=== PATIENT | male | born 1975 | race Caucasian/White ===

== ENCOUNTER 2017-10-14 20:38 | Emergency (ER) | payer SELFPAY ==
[2017-10-14] MEDS: THIAMINE 100 MG in IV NORMAL SALINE 50ML 50 ML IV (21:34)
[2017-10-14] MEDS: IV NORMAL SALINE 1000ML BAG 1,000 ML IV ×2 (21:34→21:35)
[2017-10-14 21:46] LABS: ANION GAP 16 (6-14); BLOOD UREA NITROGEN 7 mg/dL (8-26); CALCIUM 8.2 mg/dL (8.5-10.1); CARBON DIOXIDE 24 mmol/L (21-32); CHLORIDE 98 mmol/L (98-107); CREATININE 0.7 mg/dL (0.7-1.3); GFR 124.3; GLUCOSE 84 mg/dL (70-99); POTASSIUM 3.7 mmol/L (3.5-5.1); SODIUM 138 mmol/L (136-145)
[2017-10-14 21:52] LABS: BARBITURATES NEG (NEG); BENZODIAZEPINES NEG (NEG); CANNABINOIDS NEG (NEG); COCAINE NEG (NEG); METHADONE NEG (NEG); OPIATES NEG (NEG); PHENCYCLIDINE NEG (NEG)
[2017-10-14 21:53] LABS: AMPHETAMINE/METHAMPHETAMINE NEG (NEG); ETHANOL, URINE POS (NEG)
[2017-10-15] MEDS: DIPHTH,PERTUSS(ACELL),TET TOX 0.5 ML DISP.SYRIN. VAX IM (04:24)
[2017-10-15] MEDS ORDERED: SURGICEL HEMOSTAT 2X3 EACH. TP (04:30)
[2017-10-15] MEDS: SURGICEL HEMOSTAT 4X8 EACH. TP (04:36)
== END 2017-10-15 04:36 | disposition home or self-care (01) ==
LOC: ER 10-15 04:36
DX: S39.012A Strain of muscle, fascia and tendon of lower back, initial encounter (principal); S16.1XXA Strain of muscle, fascia and tendon at neck level, initial encounter; S09.90XA Unspecified injury of head, initial encounter; F10.129 Alcohol abuse with intoxication, unspecified; Z88.8 Allergy status to other drugs, medicaments and biological substances; Z88.5 Allergy status to narcotic agent; W18.39XA Other fall on same level, initial encounter; Y93.89 Activity, other specified; Y92.091 Bathroom in other non-institutional residence as the place of occurrence of the external cause; Y99.8 Other external cause status
CPT/HCPCS: 36415; 70450; 71045; 72100; 72125; 72170; 80048; 80307; 90471; 90715; 93005; 96365; 99285-25; J7030

== ENCOUNTER 2017-12-04 23:20 | Emergency (ER) | payer SELFPAY ==
[2017-12-04 23:54] LABS: LIPASE 430 U/L (73-393)
[2017-12-05] MEDS: LIDO:MAALOX 1:1 20 ML SINGLE DOSE. PO (00:02)
[2017-12-05] MEDS: IV NORMAL SALINE 1000ML BAG 1,000 ML IV ×2 (00:02→00:03)
[2017-12-05 00:27] LABS: BARBITURATES NEG (NEG); BENZODIAZEPINES NEG (NEG); CANNABINOIDS NEG (NEG); COCAINE NEG (NEG); METHADONE NEG (NEG); OPIATES NEG (NEG); PHENCYCLIDINE NEG (NEG)
[2017-12-05 00:28] LABS: AMPHETAMINE/METHAMPHETAMINE NEG (NEG); ETHANOL, URINE POS (NEG)
[2017-12-05] MEDS: THIAMINE 100 MG in IV NORMAL SALINE 50ML 50 ML IV (00:30)
[2017-12-05 00:48] LABS: ANION GAP 13 (6-14); BLOOD UREA NITROGEN 4 mg/dL (8-26); CALCIUM 8.1 mg/dL (8.5-10.1); CARBON DIOXIDE 25 mmol/L (21-32); CHLORIDE 97 mmol/L (98-107); CREATININE 0.7 mg/dL (0.7-1.3); GFR 123.7; GLUCOSE 92 mg/dL (70-99); POTASSIUM 3.6 mmol/L (3.5-5.1); SODIUM 135 mmol/L (136-145)
== END 2017-12-05 01:55 | disposition home or self-care (01) ==
LOC: ER 12-05 01:55
DX: F10.129 Alcohol abuse with intoxication, unspecified (principal); Z88.5 Allergy status to narcotic agent; Z88.8 Allergy status to other drugs, medicaments and biological substances
CPT/HCPCS: 36415; 80048; 80307; 83690; 93005; 96365; 99285-25; J7030

== ENCOUNTER 2018-01-01 15:54 | Emergency (ER) | payer SELFPAY ==
[2018-01-01 16:21] LABS: ADD MAN DIFF? NO
[2018-01-01 16:37] LABS: BILIRUBIN,URINE NEGATIVE (NEG); CLARITY,URINE CLEAR; COLOR,URINE YELLOW; GLUCOSE,URINE NEGATIVE (NEG); NITRITE,URINE NEGATIVE (NEG); PH,URINE 5.5; PROTEIN,URINE NEGATIVE (NEG-TRACE); UROBILINOGEN,URINE 0.2 mg/dL (0.2 mg/dL)
[2018-01-01 16:42] LABS: ANION GAP 13 (6-14); BLOOD UREA NITROGEN 3 mg/dL (8-26); CALCIUM 8.1 mg/dL (8.5-10.1); CARBON DIOXIDE 23 mmol/L (21-32); CHLORIDE 100 mmol/L (98-107); CREATININE 0.6 mg/dL (0.7-1.3); GFR 147.8; GLUCOSE 91 mg/dL (70-99); POTASSIUM 3.7 mmol/L (3.5-5.1); SODIUM 136 mmol/L (136-145)
[2018-01-01 16:45] LABS: BACTERIA,URINE 0 /HPF (0-FEW); RBC,URINE 0 /HPF (0-2); WBC,URINE 0 /HPF (0-4)
[2018-01-01 16:46] LABS: BASO # 0.1 x10^3/uL (0.0-0.2); BASO % 3 % (0-3); EOS # 0.1 x10^3/uL (0.0-0.7); EOS % 1 % (0-3); HEMATOCRIT 39.8 % (39.0-53.0); HEMOGLOBIN 13.8 g/dL (13.0-17.5); LYMPH % 46 % (24-48); MEAN CORPUSCULAR HEMOGLOBIN 34 pg (25-35); MEAN CORPUSCULAR HGB CONC 35 g/dL (31-37); MEAN CORPUSCULAR VOLUME 97 fL (79-100); MONO # 0.5 x10^3/uL (0.0-1.1); MONO % 12 % (0-9); NEUT # 1.7 x10^3uL (1.8-7.7); NEUT % 38 % (31-73); PLATELET COUNT 177 x10^3/uL (140-400); RED BLOOD COUNT 4.12 x10^6/uL (4.30-5.70); RED CELL DISTRIBUTION WIDTH 13.7 % (11.5-14.5); WHITE BLOOD COUNT 4.3 x10^3/uL (4.0-11.0)
[2018-01-01 16:48] LABS: ALBUMIN 4.1 g/dL (3.4-5.0); ALK PHOS 52 U/L (46-116); ALT (SGPT) 138 U/L (16-63); AST (SGOT) 230 U/L (15-37); DIRECT BILIRUBIN 0.2 mg/dL (0.0-0.2); MAGNESIUM 2.1 mg/dL (1.8-2.4); TOTAL BILIRUBIN 0.5 mg/dL (0.2-1.0); TOTAL PROTEIN 7.4 g/dL (6.4-8.2)
[2018-01-01] MEDS: MULTIVIT INFUSN,ADULT 4,VIT K 10 ML, THIAMINE 100 MG, FOLIC ACID 1 MG in IV NORMAL SALI... IV (16:50)
[2018-01-01 16:54] LABS: ETHANOL 425 mg/dL (0-10)
[2018-01-01 16:55] LABS: TROPONINI < 0.017 ng/mL (0.000-0.055)
[2018-01-01 17:00] LABS: AMPHETAMINE/METHAMPHETAMINE NEG (NEG); BARBITURATES NEG (NEG); BENZODIAZEPINES NEG (NEG); CANNABINOIDS NEG (NEG); COCAINE NEG (NEG); ETHANOL, URINE POS (NEG); METHADONE NEG (NEG); OPIATES NEG (NEG); PHENCYCLIDINE NEG (NEG)
[2018-01-01] MEDS: ONDANSETRON PF 4 MG/2 ML VIAL. IV (17:30)
== END 2018-01-01 17:50 | disposition home or self-care (01) ==
LOC: ER 15:54
DX: F10.129 Alcohol abuse with intoxication, unspecified (principal)
CPT/HCPCS: 36415; 70450; 71045; 80048; 80076; 80307; 81001; 83735; 84484; 85025; 93005; 96365; 99285; G0480; J7030

== ENCOUNTER 2018-01-01 22:30 | Emergency (ER) | payer SELFPAY | END 2018-01-01 23:10 | disposition home or self-care (01) | LOC: ER 22:30 | DX: F10.120 Alcohol abuse with intoxication, uncomplicated (principal) | CPT/HCPCS: 99283 ==

== ENCOUNTER 2018-04-16 23:14 | Emergency (ER) | payer SELFPAY ==
[~2018-04-16] VITALS: Ht 175.3 cm; Wt 68.0 kg
[2018-04-16 23:14] VITALS: BP 147/85
[~2018-04-16 23:14] MED LIST: BUSP10TA PO; GABA-586 PO; HALO2TAB PO; HYDR50CA2 PO; NALT50TA PO; TRAZ-86 PO
[2018-04-17] MEDS ORDERED: VENTOLIN HFA18 GM INH (00:06)
[2018-04-17] MEDS ORDERED: AMOX1TAB61 PO (00:06)
[2018-04-17] MEDS ORDERED: BENZ100C PO (00:06)
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
[2018-04-17] MEDS ORDERED: DIPHTH,PERTUSS(ACELL),TET TOX 0.5 ML DISP.SYRIN. VAX IM ONE (00:15)
== END 2018-04-17 00:12 | disposition home or self-care (01) ==
LOC: ER 23:14
DX: S81.851A Open bite, right lower leg, initial encounter (principal); F10.129 Alcohol abuse with intoxication, unspecified; R05 Cough; F17.200 Nicotine dependence, unspecified, uncomplicated; Y90.9 Presence of alcohol in blood, level not specified; Z88.5 Allergy status to narcotic agent; Z88.8 Allergy status to other drugs, medicaments and biological substances; W54.0XXA Bitten by dog, initial encounter; Y93.89 Activity, other specified; Y92.89 Other specified places as the place of occurrence of the external cause; Y99.8 Other external cause status
CPT/HCPCS: 90471; 90715; 99283

== ENCOUNTER 2018-05-24 19:27 | Emergency (ER) | payer SELFPAY ==
[~2018-05-24] VITALS: Ht 175.3 cm; Wt 65.8 kg
[~2018-05-24 19:27] MED LIST changes: +AMOX1TAB61 PO; +BENZ100C PO; +VENTOLIN HFA18 GM INH
[2018-05-24] MEDS: IV NORMAL SALINE 1000ML BAG 1,000 ML IV ONE ×2 (19:52→21:45)
[2018-05-24 20:44] LABS: BASO # 0.1 x10^3/uL (0.0-0.2); BASO % 3 % (0-3); EOS # 0.1 x10^3/uL (0.0-0.7); EOS % 1 % (0-3); HEMOGLOBIN 13.8 g/dL (13.0-17.5); LYMPH % 51 % (24-48); MEAN CORPUSCULAR HEMOGLOBIN 34 pg (25-35); MEAN CORPUSCULAR HGB CONC 35 g/dL (31-37); MEAN CORPUSCULAR VOLUME 100 fL (79-100); MONO # 0.3 x10^3/uL (0.0-1.1); MONO % 9 % (0-9); NEUT # 1.4 x10^3uL (1.8-7.7); NEUT % 36 % (31-73); PLATELET COUNT 218 x10^3/uL (140-400); RED BLOOD COUNT 4.02 x10^6/uL (4.30-5.70); RED CELL DISTRIBUTION WIDTH 13.3 % (11.5-14.5); WHITE BLOOD COUNT 3.8 x10^3/uL (4.0-11.0)
[2018-05-24 20:49] LABS: CALCIUM 7.8 mg/dL (8.5-10.1); CREATININE 0.6 mg/dL (0.7-1.3); GFR 147.8; POTASSIUM 3.8 mmol/L (3.5-5.1)
[2018-05-24 20:55] LABS: ALBUMIN 3.8 g/dL (3.4-5.0); ALBUMIN/GLOBULIN RATIO 1.2 (1.0-1.7); TOTAL BILIRUBIN 0.3 mg/dL (0.2-1.0); TOTAL PROTEIN 7.1 g/dL (6.4-8.2)
[2018-05-24 21:24] LABS: BILIRUBIN,URINE NEGATIVE (NEG); CLARITY,URINE CLEAR; COLOR,URINE YELLOW; NITRITE,URINE NEGATIVE (NEG); PH,URINE 5.5; PROTEIN,URINE NEGATIVE (NEG-TRACE); UROBILINOGEN,URINE 0.2 mg/dL (0.2 mg/dL)
[2018-05-24 21:32] LABS: BACTERIA,URINE 0 /HPF (0-FEW); RBC,URINE 0 /HPF (0-2); SQUAMOUS EPITHELIAL CELL,UR OCC /LPF; WBC,URINE 0 /HPF (0-4)
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
[2018-05-24 21:36] LABS: BARBITURATES NEG (NEG); BENZODIAZEPINES NEG (NEG); CANNABINOIDS NEG (NEG); COCAINE NEG (NEG); METHADONE NEG (NEG); OPIATES NEG (NEG); PHENCYCLIDINE NEG (NEG)
[2018-05-24 21:38] LABS: AMPHETAMINE/METHAMPHETAMINE NEG (NEG)
[2018-05-25 02:30] VITALS: BP 103/54
--- NOTE | 2018-05-25 09:29 | EKG ---
[facility] [address] [place] [address] Test Date: 2018-05-24 Test Time: 19:37:20 Pat Name: AJAY MUÑOZ Department: Room: Gender: M Employment Director: : 1975 Requested By: SHAUN TEJADA Order Number: [id number] Reading MD: Brandan Dumont MD Measurements Intervals Arbon Rate: 109 P: RI: QRS: 56 QRSD: 84 T: 71 QT: 368 QTc: 497 Interpretive Statements SR NON-SPECIFIC ST/T CHANGES Electronically Signed On 05-26-2018 9:06:02 CDT by Brandan Dumont MD
== END 2018-05-25 03:22 | disposition home or self-care (01) ==
LOC: ER 19:27
DX: F10.229 Alcohol dependence with intoxication, unspecified (principal); F32.9 Major depressive disorder, single episode, unspecified; F43.20 Adjustment disorder, unspecified; Y90.8 Blood alcohol level of 240 mg/100 ml or more; Z88.5 Allergy status to narcotic agent; Z88.8 Allergy status to other drugs, medicaments and biological substances; Y90.2 Blood alcohol level of 40-59 mg/100 ml
CPT/HCPCS: 36415; 80053; 80307; 81001; 82150; 83690; 83735; 85025; 93005; 96360; 96361; 99285; G0480; J7030; G0479

== ENCOUNTER 2018-06-21 20:25 | Emergency (ER) | payer SELFPAY ==
[~2018-06-21] VITALS: Ht 172.7 cm; Wt 65.8 kg
[2018-06-21 20:25] VITALS: BP 110/74
--- NOTE | 2018-06-21 20:58 | RAD ---
Left elbow 3 views. HISTORY: Fell last night 3 views were taken of the left elbow. There is no fracture. The fat pads the elbow are not displaced. IMPRESSION: 1. Negative left elbow. Electronically signed by: Uriel Benton MD (06/21/2018 8:55 PM) [facility]
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
[2018-06-21] MEDS ORDERED: ACETAMINOPHEN 500 MG TABLET PO ONE (21:30)
== END 2018-06-21 22:58 | disposition home or self-care (01) ==
LOC: ER 20:25
DX: M25.522 Pain in left elbow (principal); F32.9 Major depressive disorder, single episode, unspecified; F10.229 Alcohol dependence with intoxication, unspecified; Y90.9 Presence of alcohol in blood, level not specified; Z88.5 Allergy status to narcotic agent; Z88.8 Allergy status to other drugs, medicaments and biological substances
CPT/HCPCS: 73080; 99284

== ENCOUNTER 2019-05-19 21:27 | Emergency (ER) | payer SELFPAY ==
[~2019-05-19] VITALS: Ht 175.3 cm; Wt 70.3 kg
[~2019-05-19 21:27] MED LIST changes: -GABA-586 PO; +GABA300C18 PO
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
[2019-05-19 22:00] VITALS: BP 107/57
== END 2019-05-19 22:04 | disposition home or self-care (01) ==
LOC: ER 21:27
DX: S00.03XA Contusion of scalp, initial encounter (principal); F10.229 Alcohol dependence with intoxication, unspecified; F32.9 Major depressive disorder, single episode, unspecified; Y90.9 Presence of alcohol in blood, level not specified; Y04.8XXA Assault by other bodily force, initial encounter; Y93.89 Activity, other specified; Y92.89 Other specified places as the place of occurrence of the external cause; Y99.8 Other external cause status
CPT/HCPCS: 99283

== ENCOUNTER 2019-07-27 01:46 | Emergency (ER) | payer SELFPAY ==
[~2019-07-27] VITALS: Ht 175.3 cm; Wt 67.1 kg
[~2019-07-27 01:46] MED LIST changes: +CHLO25CA9 PO; +ESCITALOPRAM OX20 MG PO; +Folic Acid PO; +GABA600T7 PO; +HYDR25TA PO; +MULT1TAB90 PO; +Nicotine 21MG TD; +PANT40TA77 PO; +PRAZ1CAP2 PO; +THIA100T22 PO
[2019-07-27] MEDS ORDERED: MULTIVIT INFUSN,ADULT 4,VIT K 10 ML, THIAMINE INJ 100 MG, FOLIC ACID INJ 1 MG in IV NOR... IV ONE (02:15)
[2019-07-27 02:33] LABS: ACETAMIN < 2 mcg/ml (10-30); SALIC 2.9 mg/dL (2.8-20.0)
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
[2019-07-27 02:59] LABS: BARBITURATES NEG (NEG); BENZODIAZEPINES NEG (NEG); CANNABINOIDS NEG (NEG); COCAINE NEG (NEG); METHADONE NEG (NEG); OPIATES NEG (NEG); PHENCYCLIDINE NEG (NEG)
[2019-07-27 03:01] LABS: AMPHETAMINE/METHAMPHETAMINE NEG (NEG)
[2019-07-27 03:16] VITALS: BP 118/78
[2019-07-27 03:23] LABS: BASO # 0.1 x10^3/uL (0.0-0.2); BASO % 2 % (0-3); EOS # 0.1 x10^3/uL (0.0-0.7); EOS % 1 % (0-3); HEMATOCRIT 41.6 % (39.0-53.0); HEMOGLOBIN 14.4 g/dL (13.0-17.5); LYMPH % 46 % (24-48); MEAN CORPUSCULAR HEMOGLOBIN 34 pg (25-35); MEAN CORPUSCULAR HGB CONC 35 g/dL (31-37); MEAN CORPUSCULAR VOLUME 98 fL (79-100); MONO # 0.6 x10^3/uL (0.0-1.1); MONO % 13 % (0-9); NEUT # 1.6 x10^3/uL (1.8-7.7); NEUT % 37 % (31-73); PLATELET COUNT 241 x10^3/uL (140-400); RED BLOOD COUNT 4.23 x10^6/uL (4.30-5.70); RED CELL DISTRIBUTION WIDTH 13.6 % (11.5-14.5); WHITE BLOOD COUNT 4.3 x10^3/uL (4.0-11.0)
[2019-07-27 03:30] LABS: CALCIUM 8.5 mg/dL (8.5-10.1); CREATININE 0.6 mg/dL (0.7-1.3); POTASSIUM 3.7 mmol/L (3.5-5.1)
[2019-07-27 03:36] LABS: ALBUMIN 4.3 g/dL (3.4-5.0); ALBUMIN/GLOBULIN RATIO 1.1 (1.0-1.7); TOTAL BILIRUBIN 0.5 mg/dL (0.2-1.0); TOTAL PROTEIN 8.1 g/dL (6.4-8.2)
--- NOTE | 2019-07-27 07:28 | EKG ---
[facility] [address] [place] [address] Test Date: 2019-07-27 Test Time: 02:12:10 Pat Name: AJAY MUÑOZ Department: Room: Gender: M Retail Customer Service Representative: : 1975 Requested By: CINTHIA DAS Order Number: [id number] Reading MD: Measurements Intervals [place] Rate: 75 P: 65 OK: 150 QRS: 49 QRSD: 82 T: 65 QT: 386 QTc: 434 Interpretive Statements SINUS RHYTHM INCOMPLETE RIGHT BUNDLE BRANCH BLOCK OTHERWISE NORMAL ECG RI6.01 No previous ECG available for comparison
[2019-07-29] MEDS ORDERED: CITA10TA8 PO (07:58)
[2019-07-29] MEDS ORDERED: ESCITALOPRAM OX20 MG PO (07:58)
== END 2019-07-27 03:35 | disposition home or self-care (01) ==
LOC: ER 01:46
DX: F10.229 Alcohol dependence with intoxication, unspecified (principal); R07.89 Other chest pain; F41.9 Anxiety disorder, unspecified; F17.210 Nicotine dependence, cigarettes, uncomplicated; F12.90 Cannabis use, unspecified, uncomplicated; Y90.8 Blood alcohol level of 240 mg/100 ml or more; Z88.5 Allergy status to narcotic agent; Z98.890 Other specified postprocedural states
CPT/HCPCS: 36415; 80053; 80307; 80329; 82553; 83690; 84484; 85025; 93005; 96365; 99285; G0480; J7030

== ENCOUNTER 2019-07-28 01:49 | Inpatient (IN) | payer SELFPAY ==
[~2019-07-28] VITALS: Ht 175.3 cm; Wt 64.6 kg
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
[2019-07-28] MEDS ORDERED: MULTIVIT INFUSN,ADULT 4,VIT K 10 ML, THIAMINE INJ 100 MG, FOLIC ACID INJ 1 MG in IV NOR... IV ONE (02:15)
[2019-07-28] MEDS ORDERED: ONDANSETRON PF 4 MG/2 ML VIAL. IV ONE (02:15)
[2019-07-28] MEDS ORDERED: FAMOTIDINE 20 MG/2 ML VIAL IVP ONE (02:15)
[2019-07-28 02:40] LABS: BASO # 0.2 x10^3/uL (0.0-0.2); BASO % 2 % (0-3); EOS % 1 % (0-3); HEMATOCRIT 43.2 % (39.0-53.0); HEMOGLOBIN 14.8 g/dL (13.0-17.5); LYMPH # 2.1 x10^3/uL (1.0-4.8); LYMPH % 21 % (24-48); MEAN CORPUSCULAR HEMOGLOBIN 34 pg (25-35); MEAN CORPUSCULAR HGB CONC 34 g/dL (31-37); MEAN CORPUSCULAR VOLUME 98 fL (79-100); MONO # 0.6 x10^3/uL (0.0-1.1); MONO % 6 % (0-9); NEUT # 7.1 x10^3/uL (1.8-7.7); NEUT % 71 % (31-73); PLATELET COUNT 245 x10^3/uL (140-400); RED BLOOD COUNT 4.39 x10^6/uL (4.30-5.70); RED CELL DISTRIBUTION WIDTH 13.6 % (11.5-14.5); WHITE BLOOD COUNT 9.9 x10^3/uL (4.0-11.0)
[2019-07-28 02:43] LABS: BILIRUBIN,URINE NEGATIVE (NEG); CLARITY,URINE CLEAR; COLOR,URINE YELLOW; NITRITE,URINE NEGATIVE (NEG); PROTEIN,URINE NEGATIVE (NEG-TRACE); UROBILINOGEN,URINE 0.2 mg/dL (0.2 mg/dL)
[2019-07-28 02:54] LABS: BARBITURATES NEG (NEG); BENZODIAZEPINES NEG (NEG); CANNABINOIDS NEG (NEG); COCAINE NEG (NEG); METHADONE NEG (NEG); OPIATES NEG (NEG); PHENCYCLIDINE NEG (NEG)
[2019-07-28 02:58] LABS: BACTERIA,URINE 0 /HPF (0-FEW); SQUAMOUS EPITHELIAL CELL,UR OCC /LPF
[2019-07-28] MEDS ORDERED: NICOTINE 21MG PATCH. TD ONE (03:00)
[2019-07-28 03:01] LABS: AMPHETAMINE/METHAMPHETAMINE NEG (NEG)
[2019-07-28 03:20] LABS: CALCIUM 8.2 mg/dL (8.5-10.1); CREATININE 0.6 mg/dL (0.7-1.3); POTASSIUM 3.6 mmol/L (3.5-5.1)
[2019-07-28 03:24] LABS: ALBUMIN 4.4 g/dL (3.4-5.0); DIRECT BILIRUBIN 0.1 mg/dL (0.0-0.2); MAGNESIUM 2.3 mg/dL (1.8-2.4); TOTAL BILIRUBIN 0.3 mg/dL (0.2-1.0); TOTAL PROTEIN 8.3 g/dL (6.4-8.2)
[2019-07-28] MEDS ORDERED: ONDANSETRON PF 4 MG/2 ML VIAL. IV PRN (03:30)
--- NOTE | 2019-07-28 04:23 | RAD ---
PORTABLE CHEST 1V INDICATION: Chest pain. COMPARISON STUDY: 07/16/2019. FINDINGS: Lungs: Normal lung volume. No pulmonary mass or consolidation. Right apical scarring. The tracheobronchial tree and hilar structures are normal. Pleura: No pleural effusion or pneumothorax. Heart and Mediastinum: The cardiomediastinal silhouette is normal. The great vessels of the thorax are normal. IMPRESSION: No acute cardiopulmonary process. Electronically signed by: David Nelson MD (07/28/2019 4:20 AM) [facility]
[2019-07-28] MEDS: IV NORMAL SALINE 1000ML BAG 1,000 ML IV SCH ×3 (04:31→20:44)
--- NOTE | 2019-07-28 05:00 | NUR ---
The patient, AJAY MUÑOZ, 43 y/o, M admitted by LILI HOUSE MD, was given written information regarding hospital policies, unit procedures and contact persons. Valuables were checked and pt refused to have security lock up any belongings. PAT team saw pt in ER. Cleared him of needing any 1:1 observation. Pt. is wanting to go to an alcohol rehab. Denies any current needs. Will continue to monitor.
[2019-07-28 07:00] VITALS: BP 125/79
--- NOTE | 2019-07-28 07:07 | EKG ---
[facility] [address] [place] [address] Test Date: 2019-07-28 Test Time: 02:05:37 Pat Name: AJAY MUÑOZ Department: Room: Gender: M Supply Person: : 1975 Requested By: LEVI DAVIS Order Number: [id number] Reading MD: Measurements Intervals [place] Rate: 83 P: 59 AR: 142 QRS: 59 QRSD: 84 T: 71 QT: 368 QTc: 433 Interpretive Statements SINUS RHYTHM QRS(T) CONTOUR ABNORMALITY CONSIDER ANTEROSEPTAL MYOCARDIAL DAMAGE POSSIBLY ABNORMAL ECG RI6.01 No previous ECG available for comparison
[2019-07-28] MEDS ORDERED: TEMAZEPAM 7.5 MG CAPSULE PO PRN (08:30)
[2019-07-28] MEDS ORDERED: fentaNYL PF VIAL 100 MCG/2 ML VIAL IVP PRN (08:30)
[2019-07-28] MEDS ORDERED: ONDANSETRON PF 4 MG/2 ML VIAL. IVP PRN (08:30)
[2019-07-28] MEDS ORDERED: ACETAMINOPHEN 500 MG TABLET PO PRN (08:30)
[2019-07-28] MEDS ORDERED: chlordiazePOXIDE HCL 25 MG CAPSULE PO PRN ×2 (08:30→12:30)
[2019-07-28] MEDS ORDERED: traMADol 50 MG TABLET PO PRN (08:30)
[2019-07-28] MEDS ORDERED: CALCIUM CARBONATE 500 MG TAB.CHEW PO PRN (08:30)
[2019-07-28] MEDS ORDERED: FLU VAX QS 2019-20 (36MOS+)/PF 0.5 ML SYRINGE. VAX IM ONE (09:00)
[2019-07-28] MEDS ORDERED: NICOTINE 21MG PATCH. TD PRN (09:00)
[2019-07-28] MEDS ORDERED: CITALOPRAM 10 MG TABLET. PO SCH (09:00)
[2019-07-28 11:00] VITALS: BP 135/77
--- NOTE | 2019-07-28 12:18 | PDOC1 ---
History and Physical Date of Admission Date of Admission DATE: 07/28/19 TIME: 12:13 Identification/Chief Complaint Chief Complaint depressed Source Source: Caregiver, Chart review, Patient History of Present Illness History of Present Illness HE is a 43 white male, so depressed, lost his sister 2 yrs or 2 mos ago, then he quit his job yesterday, HE started drinking and etoh 480,. HAs not ambulated yet, ate ok as per staff, PAT team consulted, someone will visit later 1:30 PM> AST ALT high in this alcoholic, NO abd pain, I dont think he takes any home meds Agreeable to try celexa. Past Medical History Cardiovascular: HTN GI: GERD, Other Psych: Anxiety, Addictions, Depression, Other Past Surgical History Past Surgical History: No pertinent history Family History Family History: Hypertension Social History Smoke: <1 pack per day ALCOHOL: heavy Drugs: None Current Problem List Problem List Problems Medical Problems: (1) Alcohol intoxication Status: Acute (2) Depression with suicidal ideation Status: Acute Current Medications Current Medications Current Medications Multivitamins 10 ml/Thiamine HCl 100 mg/Folic Acid 1 mg/Sodium Chloride 1,011.2 ml @ 1,000 mls/ hr 1X ONCE IV Last administered on 07/28/19at 02:41; Start 07/28/19 at 02:15; Stop 07/28/19 at 03:15; Status DC Ondansetron HCl (Zofran) 4 mg 1X ONCE IV Last administered on 07/28/19at 02:31; Start 07/28/19 at 02:15; Stop 07/28/19 at 02:16; Status DC Famotidine (Pepcid Vial) 20 mg 1X ONCE IVP Last administered on 07/28/19at 02:31; Start 07/28/19 at 02:15; Stop 07/28/19 at 02:16; Status DC Nicotine (Nicoderm Cq 21mg) 1 patch 1X ONCE TD Last administered on 07/28/19at 03:06; Start 07/28/19 at 03:00; Stop 07/28/19 at 03:01; Status DC Ondansetron HCl (Zofran) 4 mg PRN Q8HRS PRN IV NAUSEA/VOMITING; Start 07/28/19 at 03:30; Stop 07/29/19 at 03:29 Sodium Chloride 1,000 ml @ 125 mls/hr Q8H IV Last administered on 07/28/19at 04:31; Start 07/28/19 at 03:30; Stop 07/29/19 at 03:29 Lorazepam (Ativan Inj) 1 mg PRN Q4HRS PRN IVP ANXIETY / AGITATION Last administered on 07/28/19at 05:54; Start 07/28/19 at 03:30 Influenza Virus Vaccine Quadrival (Afluria Quad 2019-20 (3yr Up) Syringe) 0.5 ml ONCE ONCE VAX IM Last administered on 07/28/19at 09:32; Start 07/28/19 at 09:00; Stop 07/28/19 at 09:01; Status DC Ondansetron HCl (Zofran) 4 mg PRN Q6HRS PRN IVP NAUSEA/VOMITING; Start 07/28/19 at 08:30 Acetaminophen (Tylenol) 500 mg PRN Q6HRS PRN PO MILD PAIN / TEMP; Start 07/28/19 at 08:30 Tramadol HCl (Ultram) 50 mg PRN Q6HRS PRN PO PAIN MODERATE; Start 07/28/19 at 08:30 Calcium Carbonate/ Glycine (Tums) 500 mg PRN AFTMEALHC PRN PO INDIGESTION; Start 07/28/19 at 08:30 Fentanyl Citrate (Fentanyl 2ml Vial) 50 mcg PRN Q2HR PRN IVP PAIN MODERATE TO SEVERE; Start 07/28/19 at 08:30 Citalopram Hydrobromide (CeleXA) 10 mg DAILY PO Last administered on 07/28/19at 09:29; Start 07/28/19 at 09:00 Chlordiazepoxide (Librium) 25 mg PRN Q6HRS PRN PO ANXIETY / AGITATION; Start 07/28/19 at 08:30 Multivitamins (Thera M Plus) 1 tab DAILY PO ; Start 08/03/19 at 09:00 Thiamine Mononitrate (Vitamin B-1) 100 mg DAILY PO ; Start 08/03/19 at 09:00 Folic Acid (Folic Acid) 1 mg DAILY PO ; Start 08/03/19 at 09:00 Multivitamins 10 ml/Thiamine HCl 100 mg/Folic Acid 1 mg/Sodium Chloride 1,011.2 ml @ 100 mls/ hr DAILY IV ; Start 07/29/19 at 09:00; Stop 08/02/19 at 19:07 Temazepam (Restoril) 7.5 mg PRN QHS PRN PO INSOMNIA; Start 07/28/19 at 08:30 Active Scripts Active Thera-M Tablet (Multivits,Ca,Minerals/Iron/Fa) 1 Each Tablet 1 Tab PO DAILY Vitamin B-1 (Thiamine Mononitrate) 100 Mg Tablet 100 Mg PO DAILY [Folic Acid] 1 MG Tablet 1 Mg PO DAILY Pantoprazole Sodium (Pantoprazole Sodium) 40 Mg Tablet.dr 40 Mg PO DAILYAC Chlordiazepoxide Hcl 25 Mg Capsule 25 Mg PO PRN Q6HRS PRN [Nicotine 21MG] 1 PATCH Patch 1 Patch TD PRN DAILY PRN Ventolin Hfa Inhaler (Albuterol Sulfate) 18 Gm Hfa.aer.ad 2 Puff INH Q4HRS Reported Hydroxyzine Hcl 25 Mg Tablet 1-2 Tab PO PRN QID PRN Gabapentin 600 Mg Tablet 600 Mg PO TID Escitalopram Oxalate 20 Mg Tablet 1.5 Tab PO DAILY Prazosin Hcl 1 Mg Capsule 1 Cap PO QHS Allergies Allergies: Coded Allergies: fluoxetine (Unverified Allergy, Intermediate, 03/29/15) hydrocodone (Verified Adverse Reaction, Intermediate, 03/29/15) "WIG OUT PER PATIENT" ROS Review of System depressed demeanor, all else is neg Physical Exam General: Alert, Oriented X3, Cooperative, No acute distress HEENT: Atraumatic, PERRLA, EOMI Lungs: Clear to auscultation, Normal air movement Heart: S1S2, RRR, no thrills, no rubs, no gallops Cardiovascular: S1, S2 Abdomen: Normal bowel sounds, Soft, No tenderness, No hepatosplenomegaly, No masses Male Genitals Exam: normal genitalia, normal prostate Rectal Exam: not examined PELVIC: Nml ext genitalia Extremities: No clubbing, No cyanosis, No edema, Normal pulses, No tenderness/swelling Skin: No rashes, No breakdown, No significant lesion Neuro: Normal gait, Normal speech, Strength at 5/5 X4 ext, Normal tone, Sensation intact, Cranial nerves 3-12 NL, Reflexes 2+ Psych/Mental Status: Mental status NL, Mood NL Vitals Vitals Vital Signs Date Time Temp Pulse Resp B/P (MAP) Pulse Ox O2 Delivery O2 Flow Rate FiO2 07/28/19 08:00 Room Air 07/28/19 07:00 98.0 98 16 125/79 (94) 97 98.0 Labs Labs Laboratory Tests Test 07/28/19 02:10 07/28/19 02:25 07/28/19 10:05 Urine Collection Type Void Urine Color Yellow Urine Clarity Clear Urine pH 6.0 Urine Specific [place] <=1.005 Urine Protein Negative mg/dL (NEG-TRACE) Urine Glucose (UA) Negative mg/dL (NEG) Urine Ketones (Stick) Negative mg/dL (NEG) Urine Blood Negative (NEG) Urine Nitrite Negative (NEG) Urine Bilirubin Negative (NEG) Urine Urobilinogen Dipstick 0.2 mg/dL (0.2 mg/dL) Urine Leukocyte Esterase Negative (NEG) Urine RBC 1-2 /HPF (0-2) Urine WBC 1-4 /HPF (0-4) Urine Squamous Epithelial Cells Occ /LPF Urine Bacteria 0 /HPF (0-FEW) Urine Opiates Screen Neg (NEG) Urine Methadone Screen Neg (NEG) Urine Barbiturates Neg (NEG) Urine Phencyclidine Screen Neg (NEG) Urine Amphetamine/Methamphetamine Neg (NEG) Urine Benzodiazepines Screen Neg (NEG) Urine Cocaine Screen Neg (NEG) Urine Cannabinoids Screen Neg (NEG) Urine Ethyl Alcohol Pos (NEG) White Blood Count 9.9 x10^3/uL (4.0-11.0) Red Blood Count 4.39 x10^6/uL (4.30-5.70) Hemoglobin 14.8 g/dL (13.0-17.5) Hematocrit 43.2 % (39.0-53.0) Mean Corpuscular Volume 98 fL (79-100) Mean Corpuscular Hemoglobin 34 pg (25-35) Mean Corpuscular Hemoglobin Concent 34 g/dL (31-37) Red Cell Distribution Width 13.6 % (11.5-14.5) Platelet Count 245 x10^3/uL (140-400) Neutrophils (%) (Auto) 71 % (31-73) Lymphocytes (%) (Auto) 21 % (24-48) Monocytes (%) (Auto) 6 % (0-9) Eosinophils (%) (Auto) 1 % (0-3) Basophils (%) (Auto) 2 % (0-3) Neutrophils # (Auto) 7.1 x10^3/uL (1.8-7.7) Lymphocytes # (Auto) 2.1 x10^3/uL (1.0-4.8) Monocytes # (Auto) 0.6 x10^3/uL (0.0-1.1) Eosinophils # (Auto) 0.0 x10^3/uL (0.0-0.7) Basophils # (Auto) 0.2 x10^3/uL (0.0-0.2) Sodium Level 138 mmol/L (136-145) Potassium Level 3.6 mmol/L (3.5-5.1) Chloride Level 97 mmol/L (98-107) Carbon Dioxide Level 28 mmol/L (21-32) Anion Gap 13 (6-14) Blood Urea Nitrogen 3 mg/dL (8-26) Creatinine 0.6 mg/dL (0.7-1.3) Estimated GFR (Cockcroft-Gault) 147.0 Glucose Level 86 mg/dL (70-99) Calcium Level 8.2 mg/dL (8.5-10.1) Magnesium Level 2.3 mg/dL (1.8-2.4) Total Bilirubin 0.3 mg/dL (0.2-1.0) Direct Bilirubin 0.1 mg/dL (0.0-0.2) Aspartate Amino Transf (AST/SGOT) 207 U/L (15-37) Alanine Aminotransferase (ALT/SGPT) 134 U/L (16-63) Alkaline Phosphatase 61 U/L (46-116) Troponin I Quantitative < 0.017 ng/mL (0.000-0.055) Total Protein 8.3 g/dL (6.4-8.2) Albumin 4.4 g/dL (3.4-5.0) Ethyl Alcohol Level 480 mg/dL (0-10) 203 mg/dL (0-10) Laboratory Tests Test 07/28/19 02:10 07/28/19 02:25 07/28/19 10:05 Urine Collection Type Void Urine Color Yellow Urine Clarity Clear Urine pH 6.0 Urine Specific [place] <=1.005 Urine Protein Negative mg/dL (NEG-TRACE) Urine Glucose (UA) Negative mg/dL (NEG) Urine Ketones (Stick) Negative mg/dL (NEG) Urine Blood Negative (NEG) Urine Nitrite Negative (NEG) Urine Bilirubin Negative (NEG) Urine Urobilinogen Dipstick 0.2 mg/dL (0.2 mg/dL) Urine Leukocyte Esterase Negative (NEG) Urine RBC 1-2 /HPF (0-2) Urine WBC 1-4 /HPF (0-4) Urine Squamous Epithelial Cells Occ /LPF Urine Bacteria 0 /HPF (0-FEW) Urine Opiates Screen Neg (NEG) Urine Methadone Screen Neg (NEG) Urine Barbiturates Neg (NEG) Urine Phencyclidine Screen Neg (NEG) Urine Amphetamine/Methamphetamine Neg (NEG) Urine Benzodiazepines Screen Neg (NEG) Urine Cocaine Screen Neg (NEG) Urine Cannabinoids Screen Neg (NEG) Urine Ethyl Alcohol Pos (NEG) White Blood Count 9.9 x10^3/uL (4.0-11.0) Red Blood Count 4.39 x10^6/uL (4.30-5.70) Hemoglobin 14.8 g/dL (13.0-17.5) Hematocrit 43.2 % (39.0-53.0) Mean Corpuscular Volume 98 fL (79-100) Mean Corpuscular Hemoglobin 34 pg (25-35) Mean Corpuscular Hemoglobin Concent 34 g/dL (31-37) Red Cell Distribution Width 13.6 % (11.5-14.5) Platelet Count 245 x10^3/uL (140-400) Neutrophils (%) (Auto) 71 % (31-73) Lymphocytes (%) (Auto) 21 % (24-48) Monocytes (%) (Auto) 6 % (0-9) Eosinophils (%) (Auto) 1 % (0-3) Basophils (%) (Auto) 2 % (0-3) Neutrophils # (Auto) 7.1 x10^3/uL (1.8-7.7) Lymphocytes # (Auto) 2.1 x10^3/uL (1.0-4.8) Monocytes # (Auto) 0.6 x10^3/uL (0.0-1.1) Eosinophils # (Auto) 0.0 x10^3/uL (0.0-0.7) Basophils # (Auto) 0.2 x10^3/uL (0.0-0.2) Sodium Level 138 mmol/L (136-145) Potassium Level 3.6 mmol/L (3.5-5.1) Chloride Level 97 mmol/L (98-107) Carbon Dioxide Level 28 mmol/L (21-32) Anion Gap 13 (6-14) Blood Urea Nitrogen 3 mg/dL (8-26) Creatinine 0.6 mg/dL (0.7-1.3) Estimated GFR (Cockcroft-Gault) 147.0 Glucose Level 86 mg/dL (70-99) Calcium Level 8.2 mg/dL (8.5-10.1) Magnesium Level 2.3 mg/dL (1.8-2.4) Total Bilirubin 0.3 mg/dL (0.2-1.0) Direct Bilirubin 0.1 mg/dL (0.0-0.2) Aspartate Amino Transf (AST/SGOT) 207 U/L (15-37) Alanine Aminotransferase (ALT/SGPT) 134 U/L (16-63) Alkaline Phosphatase 61 U/L (46-116) Troponin I Quantitative < 0.017 ng/mL (0.000-0.055) Total Protein 8.3 g/dL (6.4-8.2) Albumin 4.4 g/dL (3.4-5.0) Ethyl Alcohol Level 480 mg/dL (0-10) 203 mg/dL (0-10) VTE Prophylaxis Ordered VTE Prophylaxis Devices: Yes VTE Pharmacological Prophylaxi: Yes Assessment/Plan Assessment/Plan Alcohol intox (498 levels on admit) Depression/Grief Recent loss of loved one (sister ) REcent quit job () Transaminitis PLAN: BAnana bag, CIWa, PAT team can eat Celexa to start - agreeable Dw Kareem SOmeone from AA/mental counsellor will come visit this PM LILI HOUSE MD Jul 28, 2019 12:18
[2019-07-28] MEDS ORDERED: hydrOXYzine 25 MG TABLET PO PRN (12:30)
[2019-07-28] MEDS: PANTOPRAZOLE 40 MG TABLET.DR. PO SCH (12:43)
[2019-07-28] MEDS: GABAPENTIN 300 MG CAPSULE. PO SCH ×2 (12:43→20:44)
[2019-07-28] MEDS ORDERED: ALBUTEROL SULFATE 2.5 MG/3 ML NEBU. NEB PRN (12:45)
[2019-07-28 15:00] VITALS: BP 133/75
[2019-07-28] MEDS ORDERED: NON FORMULARY ITEM (Albuterol Sulfate (Ventolin Hfa Inhaler) 2 PUFF) INH SCH (16:00)
--- NOTE | 2019-07-28 16:55 | NUR ---
SW following. PAT team consulted for ETOH. Kareem came to see pt, pt is open with [facility]. Kareem trying to schedule an updated [facility] assessment, as pt is interested in inpatient treatment. ERMELINDA will continue to follow.
[2019-07-28 19:00] VITALS: BP 153/81
[2019-07-28] MEDS ORDERED: PRAZOSIN 1 MG CAPSULE. PO SCH (21:00)
[2019-07-28 23:00] VITALS: BP 133/76
[2019-07-29 03:00] VITALS: BP 121/70
[2019-07-29 04:17] LABS: BASO # 0.1 x10^3/uL (0.0-0.2); BASO % 1 % (0-3); EOS % 0 % (0-3); HEMATOCRIT 34.9 % (39.0-53.0); HEMOGLOBIN 12.4 g/dL (13.0-17.5); LYMPH # 0.9 x10^3/uL (1.0-4.8); LYMPH % 17 % (24-48); MEAN CORPUSCULAR HEMOGLOBIN 35 pg (25-35); MEAN CORPUSCULAR HGB CONC 36 g/dL (31-37); MEAN CORPUSCULAR VOLUME 98 fL (79-100); MONO # 0.3 x10^3/uL (0.0-1.1); MONO % 6 % (0-9); NEUT # 4.2 x10^3/uL (1.8-7.7); NEUT % 76 % (31-73); PLATELET COUNT 171 x10^3/uL (140-400); RED BLOOD COUNT 3.55 x10^6/uL (4.30-5.70); RED CELL DISTRIBUTION WIDTH 13.4 % (11.5-14.5); WHITE BLOOD COUNT 5.6 x10^3/uL (4.0-11.0)
[2019-07-29 04:32] LABS: CALCIUM 7.8 mg/dL (8.5-10.1); CREATININE 0.6 mg/dL (0.7-1.3)
[2019-07-29 07:00] VITALS: BP 147/77
[2019-07-29] MEDS: PANTOPRAZOLE 40 MG TABLET.DR. PO SCH (07:55)
[2019-07-29] MEDS ORDERED: CITA10TA8 PO (07:58)
[2019-07-29] MEDS ORDERED: ESCITALOPRAM OX20 MG PO (07:58)
[2019-07-29] MEDS ORDERED: MULTIVITAMIN with MINERAL TABLET. PO SCH (09:00)
[2019-07-29] MEDS ORDERED: MULTIVIT INFUSN,ADULT 4,VIT K 10 ML, THIAMINE INJ 100 MG, FOLIC ACID INJ 1 MG in IV NOR... IV SCH (09:00)
[2019-07-29] MEDS ORDERED: CITALOPRAM 20 MG TABLET. PO SCH (09:00)
--- NOTE | 2019-07-29 09:38 | PDOC3 ---
Discharge Summary Visit Information Date of Admission: Jul 28, 2019 Date of Discharge: Jul 29, 2019 Admitting Diagnosis Comment: Sever major depression Recent loss of loved one Lamont Final Diagnosis Problems Medical Problems: (1) Alcohol intoxication Status: Acute (2) Depression with suicidal ideation Status: Acute Brief Hospital Course Allergies Allergies Coded Allergies Type Severity Reaction Last Updated Verified fluoxetine Allergy Intermediate 03/29/15 No hydrocodone Adverse Reaction Intermediate 03/29/15 Yes Vital Signs Vital Signs Date Time Temp Pulse Resp B/P (MAP) Pulse Ox O2 Delivery O2 Flow Rate FiO2 07/29/19 07:00 99.1 75 17 147/77 (100) 97 Room Air 99.1 Lab Results Laboratory Tests Test 07/28/19 02:10 07/28/19 02:25 07/28/19 10:05 07/29/19 03:20 Urine Collection Type Void Urine Color Yellow Urine Clarity Clear Urine pH 6.0 Urine Specific [place] <=1.005 Urine Protein Negative mg/dL (NEG-TRACE) Urine Glucose (UA) Negative mg/dL (NEG) Urine Ketones (Stick) Negative mg/dL (NEG) Urine Blood Negative (NEG) Urine Nitrite Negative (NEG) Urine Bilirubin Negative (NEG) Urine Urobilinogen Dipstick 0.2 mg/dL (0.2 mg/dL) Urine Leukocyte Esterase Negative (NEG) Urine RBC 1-2 /HPF (0-2) Urine WBC 1-4 /HPF (0-4) Urine Squamous Epithelial Cells Occ /LPF Urine Bacteria 0 /HPF (0-FEW) Urine Opiates Screen Neg (NEG) Urine Methadone Screen Neg (NEG) Urine Barbiturates Neg (NEG) Urine Phencyclidine Screen Neg (NEG) Urine Amphetamine/Methamphetamine Neg (NEG) Urine Benzodiazepines Screen Neg (NEG) Urine Cocaine Screen Neg (NEG) Urine Cannabinoids Screen Neg (NEG) Urine Ethyl Alcohol Pos (NEG) White Blood Count 9.9 x10^3/uL (4.0-11.0) 5.6 x10^3/uL (4.0-11.0) Red Blood Count 4.39 x10^6/uL (4.30-5.70) 3.55 x10^6/uL (4.30-5.70) Hemoglobin 14.8 g/dL (13.0-17.5) 12.4 g/dL (13.0-17.5) Hematocrit 43.2 % (39.0-53.0) 34.9 % (39.0-53.0) Mean Corpuscular Volume 98 fL (79-100) 98 fL (79-100) Mean Corpuscular Hemoglobin 34 pg (25-35) 35 pg (25-35) Mean Corpuscular Hemoglobin Concent 34 g/dL (31-37) 36 g/dL (31-37) Red Cell Distribution Width 13.6 % (11.5-14.5) 13.4 % (11.5-14.5) Platelet Count 245 x10^3/uL (140-400) 171 x10^3/uL (140-400) Neutrophils (%) (Auto) 71 % (31-73) 76 % (31-73) Lymphocytes (%) (Auto) 21 % (24-48) 17 % (24-48) Monocytes (%) (Auto) 6 % (0-9) 6 % (0-9) Eosinophils (%) (Auto) 1 % (0-3) 0 % (0-3) Basophils (%) (Auto) 2 % (0-3) 1 % (0-3) Neutrophils # (Auto) 7.1 x10^3/uL (1.8-7.7) 4.2 x10^3/uL (1.8-7.7) Lymphocytes # (Auto) 2.1 x10^3/uL (1.0-4.8) 0.9 x10^3/uL (1.0-4.8) Monocytes # (Auto) 0.6 x10^3/uL (0.0-1.1) 0.3 x10^3/uL (0.0-1.1) Eosinophils # (Auto) 0.0 x10^3/uL (0.0-0.7) 0.0 x10^3/uL (0.0-0.7) Basophils # (Auto) 0.2 x10^3/uL (0.0-0.2) 0.1 x10^3/uL (0.0-0.2) Sodium Level 138 mmol/L (136-145) 137 mmol/L (136-145) Potassium Level 3.6 mmol/L (3.5-5.1) 4.0 mmol/L (3.5-5.1) Chloride Level 97 mmol/L (98-107) 102 mmol/L (98-107) Carbon Dioxide Level 28 mmol/L (21-32) 26 mmol/L (21-32) Anion Gap 13 (6-14) 9 (6-14) Blood Urea Nitrogen 3 mg/dL (8-26) 5 mg/dL (8-26) Creatinine 0.6 mg/dL (0.7-1.3) 0.6 mg/dL (0.7-1.3) Estimated GFR (Cockcroft-Gault) 147.0 147.0 Glucose Level 86 mg/dL (70-99) 79 mg/dL (70-99) Calcium Level 8.2 mg/dL (8.5-10.1) 7.8 mg/dL (8.5-10.1) Magnesium Level 2.3 mg/dL (1.8-2.4) Total Bilirubin 0.3 mg/dL (0.2-1.0) Direct Bilirubin 0.1 mg/dL (0.0-0.2) Aspartate Amino Transf (AST/SGOT) 207 U/L (15-37) Alanine Aminotransferase (ALT/SGPT) 134 U/L (16-63) Alkaline Phosphatase 61 U/L (46-116) Troponin I Quantitative < 0.017 ng/mL (0.000-0.055) Total Protein 8.3 g/dL (6.4-8.2) Albumin 4.4 g/dL (3.4-5.0) Ethyl Alcohol Level 480 mg/dL (0-10) 203 mg/dL (0-10) < 10 mg/dL (0-10) Laboratory Tests Test 07/28/19 10:05 07/29/19 03:20 Ethyl Alcohol Level 203 mg/dL (0-10) < 10 mg/dL (0-10) White Blood Count 5.6 x10^3/uL (4.0-11.0) Red Blood Count 3.55 x10^6/uL (4.30-5.70) Hemoglobin 12.4 g/dL (13.0-17.5) Hematocrit 34.9 % (39.0-53.0) Mean Corpuscular Volume 98 fL (79-100) Mean Corpuscular Hemoglobin 35 pg (25-35) Mean Corpuscular Hemoglobin Concent 36 g/dL (31-37) Red Cell Distribution Width 13.4 % (11.5-14.5) Platelet Count 171 x10^3/uL (140-400) Neutrophils (%) (Auto) 76 % (31-73) Lymphocytes (%) (Auto) 17 % (24-48) Monocytes (%) (Auto) 6 % (0-9) Eosinophils (%) (Auto) 0 % (0-3) Basophils (%) (Auto) 1 % (0-3) Neutrophils # (Auto) 4.2 x10^3/uL (1.8-7.7) Lymphocytes # (Auto) 0.9 x10^3/uL (1.0-4.8) Monocytes # (Auto) 0.3 x10^3/uL (0.0-1.1) Eosinophils # (Auto) 0.0 x10^3/uL (0.0-0.7) Basophils # (Auto) 0.1 x10^3/uL (0.0-0.2) Sodium Level 137 mmol/L (136-145) Potassium Level 4.0 mmol/L (3.5-5.1) Chloride Level 102 mmol/L (98-107) Carbon Dioxide Level 26 mmol/L (21-32) Anion Gap 9 (6-14) Blood Urea Nitrogen 5 mg/dL (8-26) Creatinine 0.6 mg/dL (0.7-1.3) Estimated GFR (Cockcroft-Gault) 147.0 Glucose Level 79 mg/dL (70-99) Calcium Level 7.8 mg/dL (8.5-10.1) Brief Hospital Course Mr. Lizama is a 43 old [sex] who presented with [ ] HE is a 43 white male, so depressed, lost his sister 2 yrs or 2 mos ago, then he quit his job yesterday, HE started drinking and etoh 480,.levels now < 10 on dc HE actually takes lexapro, gabapentin at home and sees OP mental counsellor or psych MD HE was seen by Nanda's team, and is cleared for OP referral I advised him to cont his lexaprom, and he doesnt need rx from me, he would rather ff up with his psych MD (when we talked about adding SSRI) PTs een and examined, witnessed by fam member at bedside COnsults: PAT team Discharge Information Condition at Discharge: Improved, Stable Follow Up: Weeks (ff up OP psych) Disposition/Orders: D/C to Home Scheduled Albuterol Sulfate (Ventolin Hfa Inhaler) 18 Gm Hfa.aer.ad, 2 PUFF INH Q4HRS for FOR ASTHMA, #1 Ref 0 Prescribed by: Faith Hugo APRN on 04/17/185 Last Action: Converted on 07/28/191223 by LILI HOUSE Citalopram Hydrobromide (Celexa) 10 Mg Tablet, 1 TAB PO DAILY for depressiom, #30 Ref 2 Prescribed by: LILI HOUSE on 07/29/19757 Escitalopram Oxalate (Escitalopram Oxalate) 20 Mg Tablet, 1.5 TAB PO DAILY for anxiety, #30 Ref 5 Prescribed by: LILI HOUSE on 07/29/19757 Gabapentin (Gabapentin) 600 Mg Tablet, 600 MG PO TID for NEUROGENIC PAIN, (Reported) Entered as Reported by: DAHLIA PURDY on 07/17/19917 Last Action: Converted on 07/28/191223 by LILI HOUSE Multivits,Ca,Minerals/Iron/Fa (Thera-M Tablet) 1 Each Tablet, 1 TAB PO DAILY for mvi, #30 Prescribed by: LILI HOUSE on 07/18/19843 Last Action: Continued on 07/28/191223 by LILI HOUSE Pantoprazole Sodium (Pantoprazole Sodium ) 40 Mg Tablet.dr, 40 MG PO DAILYAC for gerd, #30 Prescribed by: LILI HOUSE on 07/18/19843 Last Action: Continued on 07/28/191223 by LILI HOUSE Prazosin Hcl (Prazosin Hcl) 1 Mg Capsule, 1 CAP PO QHS for HTN, #30 Ref 2 (Reported) Entered as Reported by: DAHLIA PURDY on 07/17/19917 Last Action: Continued on 07/28/191223 by LILI HOUSE Thiamine Mononitrate (Vitamin B-1) 100 Mg Tablet, 100 MG PO DAILY for mvi, #30 Prescribed by: LILI HOUSE on 07/18/19843 Last Action: Continued on 07/28/194 by LILI HOUSE [Folic Acid] 1 MG TABLET, 1 MG PO DAILY for mvi, #30 Prescribed by: LILI HOUSE on 07/18/19843 Last Action: Converted on 07/28/191223 by LILI HOUSE Scheduled PRN Chlordiazepoxide Hcl (Chlordiazepoxide Hcl) 25 Mg Capsule, 25 MG PO PRN Q6HRS PRN for ANXIETY / AGITATION, #60 Prescribed by: LILI HOUSE on 07/18/19843 Last Action: Continued on 07/28/191223 by LILI HOUSE Hydroxyzine Hcl (Hydroxyzine Hcl) 25 Mg Tablet, 1-2 TAB PO PRN QID PRN for ALLERGIES, #30 (Reported) Entered as Reported by: DAHLIA PURDY on 07/17/19917 Last Action: Continued on 07/28/191223 by LILI HOUSE [Nicotine 21MG] 1 PATCH PATCH, 1 PATCH TD PRN DAILY PRN for SMOKING CESSATION, #10 Prescribed by: LILI HOUSE on 07/18/19843 Last Action: Converted on 07/28/191223 by LILI HOUSE Discontinued Medications Trazodone Hcl (Trazodone Hcl) 100 Mg Tablet, 1 TAB PO QHS, #30 Ref 1 (Reported) Entered as Reported by: JENNIFER ROLAND on 12/03/14 268 Last Action: Discontinued on 07/28/19433 by LILI BARBER MD Jul 29, 2019 09:38
[2019-07-29] MEDS: GABAPENTIN 300 MG CAPSULE. PO SCH ×2 (10:12→14:00)
[2019-07-29 11:00] VITALS: BP 136/78
--- NOTE | 2019-07-29 14:40 | NUR ---
DISCHARGE INSTRUCTIONS GIVEN, QUESTIONS AND CONCERNS ANSWERED, PATIENT VERBALIZED UNDERSTANDING OF DISCHARGE INFORMATION INCLUDING TAKING ALL MEDICATIONS INSTRUCTED AND FOLLOWING UP WITH HIS PRIMARY PROVIDER IN 1-2 WEEKS AND NO ALCOHOL CONSUMPTION.
--- NOTE | 2019-07-29 14:53 | NUR ---
PATIENT LEAVES THE UNIT PER W/C, EMOTIONAL SUPPORT GIVEN, FOLLOW UP APPOINTMENTS ENCOURAGED. SALINE LOCK REMOVED FROM LEFT AC AREA PER SOFTWARE LEAD PRIOR TO DISCHARGE.
--- NOTE | 2019-07-29 14:57 | NUR ---
SW following. [facility] did another assessment, pt declined the inpatient treatment options. Pt discharging home with self care with [facility] resources and follow up at [facility]. No further SW needs.
[2019-08-03] MEDS ORDERED: MULTIVITAMIN with MINERAL TABLET. PO SCH (09:00)
[2019-08-03] MEDS ORDERED: FOLIC ACID 1 MG TABLET. PO SCH ×2 (09:00)
[2019-08-03] MEDS ORDERED: THIAMINE 100 MG TABLET. PO SCH ×2 (09:00)
== END 2019-07-29 14:53 | disposition home or self-care (01) | DRG 897 ==
LOC: ER 01:49 → 5 SOUTH 03:18
PROVIDERS: ADMIT Internal Medicine; ATTEND Internal Medicine
DX: F10.229 Alcohol dependence with intoxication, unspecified (principal); R45.851 Suicidal ideations; F32.9 Major depressive disorder, single episode, unspecified; F17.210 Nicotine dependence, cigarettes, uncomplicated; F43.10 Post-traumatic stress disorder, unspecified; I10 Essential (primary) hypertension; Z82.49 Family history of ischemic heart disease and other diseases of the circulatory system; F41.9 Anxiety disorder, unspecified; K21.9 Gastro-esophageal reflux disease without esophagitis; Z88.8 Allergy status to other drugs, medicaments and biological substances; Z79.899 Other long term (current) drug therapy
CPT/HCPCS: 36415; 71045; 80048; 80076; 80307; 81001; 83735; 84484; 85025; 90471; 90686; 93005; 96365; 96375; G0480; J2060; J2405; J3490; J7030; 99285-25; G0378

== ENCOUNTER 2019-08-27 00:46 | Emergency (ER) | payer SELFPAY ==
[~2019-08-27 00:46] MED LIST changes: +CITA10TA8 PO; +TRAZ-123 PO; -TRAZ-86 PO
[2019-08-27] MEDS ORDERED: FAMOTIDINE 20 MG/2 ML VIAL IVP ONE (01:30)
[2019-08-27] MEDS ORDERED: MULTIVIT INFUSN,ADULT 4,VIT K 10 ML, THIAMINE INJ 100 MG, FOLIC ACID INJ 1 MG in IV NOR... IV ONE (01:30)
[2019-08-27] MEDS ORDERED: ONDANSETRON PF 4 MG/2 ML VIAL. IVP ONE (01:30)
[2019-08-27 01:47] LABS: BASO # 0.1 x10^3/uL (0.0-0.2); BASO % 1 % (0-3); EOS % 1 % (0-3); HEMATOCRIT 38.5 % (39.0-53.0); HEMOGLOBIN 13.4 g/dL (13.0-17.5); LYMPH # 1.6 x10^3/uL (1.0-4.8); LYMPH % 29 % (24-48); MEAN CORPUSCULAR HEMOGLOBIN 34 pg (25-35); MEAN CORPUSCULAR HGB CONC 35 g/dL (31-37); MEAN CORPUSCULAR VOLUME 98 fL (79-100); MONO # 0.6 x10^3/uL (0.0-1.1); MONO % 11 % (0-9); NEUT # 3.2 x10^3/uL (1.8-7.7); NEUT % 58 % (31-73); PLATELET COUNT 128 x10^3/uL (140-400); RED BLOOD COUNT 3.92 x10^6/uL (4.30-5.70); RED CELL DISTRIBUTION WIDTH 13.5 % (11.5-14.5); WHITE BLOOD COUNT 5.6 x10^3/uL (4.0-11.0)
[2019-08-27 01:55] LABS: CALCIUM 8.4 mg/dL (8.5-10.1); CREATININE 0.5 mg/dL (0.7-1.3); GFR 181.5; POTASSIUM 3.4 mmol/L (3.5-5.1)
[2019-08-27 02:01] LABS: ALBUMIN 4.1 g/dL (3.4-5.0); ALBUMIN/GLOBULIN RATIO 1.2 (1.0-1.7); MAGNESIUM 1.9 mg/dL (1.8-2.4); TOTAL BILIRUBIN 0.6 mg/dL (0.2-1.0); TOTAL PROTEIN 7.5 g/dL (6.4-8.2)
[2019-08-27 02:17] VITALS: BP 122/74
[2019-08-27] MEDS ORDERED: ONDA4TAB7 PO (02:32)
[2019-08-27] MEDS ORDERED: SUCR1TAB35 PO (02:32)
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
[2019-08-27] MEDS ORDERED: NICOTINE 14MG PATCH. TD SCH (03:00)
== END 2019-08-27 02:53 | disposition home or self-care (01) ==
LOC: ER 00:46
DX: K29.20 Alcoholic gastritis without bleeding (principal); R10.13 Epigastric pain; R11.2 Nausea with vomiting, unspecified; F41.9 Anxiety disorder, unspecified; F43.10 Post-traumatic stress disorder, unspecified; F12.90 Cannabis use, unspecified, uncomplicated; F10.10 Alcohol abuse, uncomplicated; Z98.890 Other specified postprocedural states; Z88.5 Allergy status to narcotic agent
CPT/HCPCS: 36415; 80053; 83690; 83735; 85025; 96365; 96375; 99284; J2405; J3490; J7030

== ENCOUNTER 2019-08-31 19:29 | Emergency (ER) | payer SELFPAY ==
[~2019-08-31] VITALS: Ht 175.3 cm; Wt 65.0 kg
[~2019-08-31 19:29] MED LIST changes: +ONDA4TAB7 PO; +SUCR1TAB35 PO
[2019-08-31 19:59] VITALS: BP 141/85
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
== END 2019-08-31 21:35 | disposition home or self-care (01) ==
LOC: ER 19:29
DX: M79.641 Pain in right hand (principal); M25.531 Pain in right wrist; F41.9 Anxiety disorder, unspecified; F43.10 Post-traumatic stress disorder, unspecified; F12.90 Cannabis use, unspecified, uncomplicated; F10.10 Alcohol abuse, uncomplicated; Z98.890 Other specified postprocedural states; Z88.5 Allergy status to narcotic agent
CPT/HCPCS: 99281

== ENCOUNTER 2019-09-14 00:19 | Emergency (ER) | payer SELFPAY ==
[~2019-09-14] VITALS: Ht 175.3 cm; Wt 70.5 kg
[2019-09-14 00:20] VITALS: BP 152/77
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
== END 2019-09-14 00:40 | disposition left against medical advice (07) ==
LOC: ER 00:19
DX: S90.32XA Contusion of left foot, initial encounter (principal); R60.9 Edema, unspecified; F41.9 Anxiety disorder, unspecified; F43.12 Post-traumatic stress disorder, chronic; F12.90 Cannabis use, unspecified, uncomplicated; F10.10 Alcohol abuse, uncomplicated; Z98.890 Other specified postprocedural states; Z88.5 Allergy status to narcotic agent; W10.8XXA Fall (on) (from) other stairs and steps, initial encounter; Y93.89 Activity, other specified; Y92.89 Other specified places as the place of occurrence of the external cause; Y99.8 Other external cause status
CPT/HCPCS: 99283